=== PATIENT | male | born 1980 | race African-American/Black ===

== ENCOUNTER 2020-10-23 18:27 | Emergency (ER) | payer OTHER ==
[~2020-10-23] VITALS: Ht 182.9 cm; Wt 68.0 kg
[2020-10-23 18:30] VITALS: BP 95/68
--- NOTE | 2020-10-23 18:33 | NUR ---
PT SENT TO ER LOBBY TO WAIT FOR AVAILABLE BED.
--- NOTE | 2020-10-23 21:05 | NUR ---
PT CALLED IN LOBBY AND OUTSIDE WITH NO ANSWER.
--- NOTE | 2020-10-23 21:11 | NUR ---
PATIENT LEFT WITHOUT BEING SEEN BY DR. ORELLANA. NO FURTHER CARE PROVIDED FOR PATIENT.
== END 2020-10-23 21:11 | disposition left against medical advice (07) ==
LOC: MED 18:27
DX: R68.89 Other general symptoms and signs (principal); Z53.21 Procedure and treatment not carried out due to patient leaving prior to being seen by health care provider